=== PATIENT | male | born 1955 | race Caucasian/White ===

== ENCOUNTER 2017-04-30 12:22 | Day surgery (SDC) | payer BC ==
[2017-04-30] MEDS ORDERED: LISI10TA3 PO (13:09)
[2017-04-30] MEDS ORDERED: NAPR250T4 PO (13:09)
[2017-04-30] MEDS ORDERED: SODIUM CHLORID 0.9% 500 ML IV PRN (13:15)
[2017-04-30] MEDS ORDERED: CHLORHEXIDINE GLUCONATE 2 % 1 PACK (2 CLOTHS) TOPICAL PRN (13:15)
[2017-04-30] MEDS ORDERED: POVIDONE IODINE 5% (ANTISEPSIS KIT) 4 APPLICATIONS EACH NARE PRN (13:15)
[2017-04-30] MEDS ORDERED: LACTATED RINGER'S 1000 ML IV PRN (13:15)
[2017-04-30] MEDS ORDERED: METOPROLOL TARTRATE 25 MG TAB PO PRN (13:15)
[2017-04-30] MEDS ORDERED: INSULIN HUMAN REGULAR 1,000 UNITS/10 ML VIAL SQ PRN (13:15)
--- NOTE | 2017-04-30 14:45 | CF ---
cc: Marciano Cruz MD, Jeffrey DO 04/30/2017 PROCEDURE: Transesophageal echocardiogram. INDICATIONS: 1. Moderate to severe mitral regurgitation. 2. Evaluate for possible mitral valve repair. CONSENT: Fully informed consent was obtained prior to the procedure. The risks of , bleeding, perforation, aspiration, foreseen and unforeseen complications were reviewed. The patient appeared to understand and accept the risks. PROCEDURE: The patient underwent anesthesia as per the anesthesia department. A full STEPHEN was performed. FINDINGS: There is evidence of moderate to several eccentric mitral regurgitation. LV function is normal. The left atrium is not enlarged. The right atrium is not enlarged. There is trace to mild tricuspid regurgitation. There is no aortic regurgitation. LV function is normal. Right ventricular function is normal. Both atria are of normal size. CONCLUSIONS: Moderate to severe eccentric mitral regurgitation with no evidence of dilation of the chambers. At this point asymptomatic. We will hold off mitral valve repair at this time. MD ALMITA Talamantes/MAGDALENO , 02:00 PM , 02:44 PM
== END 2017-04-30 15:41 | disposition home or self-care (01) ==
LOC: HDOC 12:22 → HDIC 12:23 → HDOC 15:41
PROVIDERS: ATTEND Internal Medicine Cardiovascular Disease
DX: I34.1 Nonrheumatic mitral (valve) prolapse (principal)
CPT/HCPCS: 93312; 93320; 93325